=== PATIENT | female | born 1990 | race Caucasian/White ===

== ENCOUNTER → 2020-07-02 12:55 | Outpatient (CLI) | payer BC, SELFPAY ==
--- NOTE | ~2020-07-02 | US_ITS ---
EXAMINATION: US transvaginal DATE: 07/02/2020 13:21 INDICATION: Bilateral ovarian cysts TECHNIQUE: Multiple endovaginal sonographic images of the pelvis were obtained. COMPARISON: 12/13/2017 FINDINGS: The uterus measures 7.6 x 3.5 x 5.2 cm. The endometrial complex measures 7 mm. An IUD is in expected position. The right ovary measures 5.7 x 4.0 x 4.6 cm. There is a 5.0 x 4.2 x 3.2 cm lesion of the right adnexa with homogeneous low-level internal echoes and no internal vascularity. The left ovary measures 4.1 x 2.0 x 3.8 cm. There is normal vascular flow in the ovaries. There is a small am ount of free fluid in the pelvis which is likely physiologic free fluid in the pelvis. IMPRESSION: 1. Right adnexal lesion with sonographic features suggestive of an endometrioma. Follow-up ultrasound in 6-12 weeks is recommended. Reviewed, dictated and finalized at location A. IMPRESSION: 1. Right adnexal lesion with sonographic features suggestive of an endometrioma . Follow-up ultrasound in 6-12 weeks is recommended.
== END ==
PROVIDERS: Visit Provider Obstetrics & Gynecology Gynecology
DX: N83.201 Unspecified ovarian cyst, right side (principal); N83.202 Unspecified ovarian cyst, left side
CPT/HCPCS: 76830

== ENCOUNTER → 2023-12-18 17:25 | Outpatient (CLI) | payer BC, SELFPAY ==
--- NOTE | ~2023-12-18 | XR_ITS ---
EXAMINATION: XR cervical spine min 6V INDICATION: Cervical radiculopathy TECHNIQUE: AP, lateral in neutral, flexion, extension, bilateral oblique, and odontoid views of the c ervical spine are obtained. COMPARISON: 05/22/2019 FINDINGS: Vertebral body alignment is normal. There is no fracture. No hypermobility is present with flexion or extension. There is straightening of the cervical spine which can be positional or due to muscular spasm. There is mild loss of intervertebral disc space height at C5-6. The vertebral body he ights are maintained. There is mild facet joint osteoarthritis. The odontoid process is intact. IMPRESSION: 1. Mild cervical spondylosis without acute findings. Reviewed, dictated and finalized at location B. [employer]
== END ==
PROVIDERS: PCP Emergency Medicine; Visit Provider Emergency Medicine
DX: M47.22 Other spondylosis with radiculopathy, cervical region (principal)
CPT/HCPCS: 72052

== ENCOUNTER 2025-09-24 12:46 | Outpatient (CLI) | payer OTHER, SELFPAY ==
--- NOTE | ~2025-09-24 | US_ITS ---
EXAM/PROCEDURE: US pelvic complete w TV HISTORY: ovarian cyst COMPARISON: July 02, 2020 TECHNIQUE: Endovaginal pelvic ultrasound LMP: Not reported FINDINGS: The uterus measures 6.1 x 4.5 x 3.5 cm. Endometrial stripe measures 4 mm Fluid is noted in the endometrial canal IUD is present in stable position. Right ovary: 3.0 x 3.1 x 2.6 centers appears normal in echotexture and vascular flow. Left ovary: 3.1 x 1.3 x 1.3 cm with 1.37 m dominant follicle or small simple cyst. The left ovary appears normal vascular flow. Small amount of free fluid is present in the posterior cul-de-sac. IMPRESSION: 1. Trace amount of fluid in the endometrial canal of uncertain significance. 2. Both ovaries appear within normal limits. 3. IUD in good position. Trace amount of free fluid incidentally noted. Reviewed, dictated and finalized at location A. [employer] RE[employer]IST
== END 2025-09-24 12:47 | disposition home or self-care (01) ==
PROVIDERS: PCP Obstetrics & Gynecology Gynecology; Visit Provider Obstetrics & Gynecology Gynecology
DX: N83.201 Unspecified ovarian cyst, right side (principal); Z97.5 Presence of (intrauterine) contraceptive device
CPT/HCPCS: 76830; 76856